=== PATIENT | female | born 1995 | race Two or more races ===

== ENCOUNTER 2018-02-06 21:09 | Emergency (ER) | payer SELFPAY ==
[~2018-02-06] VITALS: Ht 157.5 cm; Wt 90.7 kg
[2018-02-06 21:28] VITALS: BP 144/80
[2018-02-07] MEDS ORDERED: MEPERIDINE HCL (50 MG/ML) 1 ML VIAL IM ONE (00:30)
== END 2018-02-07 02:51 | disposition home or self-care (01) ==
LOC: EDBD 21:09 → ER 21:22
DX: M25.511 Pain in right shoulder (principal); R51 Headache; M25.551 Pain in right hip; V43.62XA Car passenger injured in collision with other type car in traffic accident, initial encounter; Y93.89 Activity, other specified; Y99.8 Other external cause status; Y92.410 Unspecified street and highway as the place of occurrence of the external cause
CPT/HCPCS: 73030; 73501; 73700; 96372; 99284; J2175